=== PATIENT | male | born 1960 | race Caucasian/White ===

== ENCOUNTER → 2017-11-23 | Outpatient (CLI) | payer OTHER ==
--- NOTE | 2017-11-23 14:17 | CT ---
EXAMINATION TYPE: CT chest w con DATE OF EXAM: 11/23/2017 COMPARISON: None HISTORY: chest pain/congestion x 2.[address] DLP: 812 mGycm, Automated exposure control for dose reduction was used. CONTRAST: Performed injected with 100 mL of Isovue 300. TECHNIQUE: Axial images were obtained at 5 mm thick sections. Reconstructed images are reviewed on [employer] computer in the coronal plane. FINDINGS: Portion of the thyroid visualized is normal. There is a masslike density with spiculated margins in the superior left lung measuring approximately 5.4 x 3.7 cm in size. No additional lung masses or infiltrates are evident. There is a prominent 1.0 cm lymph node in the l eft axillary region. Multiple small superior mediastinal lymph nodes are present. There are enlarged left suprahilar lymph nodes with some subtle hypodensity centrally measuring 1.4-1.7 cm in diameter. The left infrahilar lymph node is in transverse dimension of 1.4 cm. There is a very large medial aor topulmonic window lymph node measuring 2.9 cm. Additional paratracheal lymphadenopathy is present. Th ere is a 1.3 cm subcarinal lymph node present. The ascending aorta diameter at the level of the main pulmonary artery is 3.2 cm. The main pulmonary artery diameter at the bifurcation is 2.[address] sections are obtained through the upper abdomen. Abdomen is essentially unremarkable. IMPRESSIONS: 1. Left suprahilar mass with multiple enlarged mediastinal lymph nodes. Primary lung neoplasm with me diastinal metastatic disease likely present. Differential could include metastatic disease to the kelly g and mediastinum. Confirmatory workup is recommended.
== END | disposition home or self-care (01) ==
LOC: RADCTMAIN 13:30
PROVIDERS: ATTEND Internal Medicine
DX: R91.8 Other nonspecific abnormal finding of lung field (principal); R59.0 Localized enlarged lymph nodes
CPT/HCPCS: 71260; Q9967

== ENCOUNTER → 2017-12-01 | Outpatient (CLI) | payer OTHER ==
--- NOTE | 2017-12-02 09:52 | PE ---
EXAMINATION TYPE: PET CT fusion skull to thigh DATE OF EXAM: 12/01/2017 COMPARISON: CT chest 11/23/2017 Prior PET/CT: None HISTORY: Solitary pulmonary nodule TECHNIQUE: Following the intravenous administration of 10.234 mCi of F-18 FDG, whole body images are performed from the skull base to the midthigh. Images are reviewed on the computer in the coronal, axial, and sagittal planes. Reconstructed rotating images are created on independent workstation and reviewed on the computer. A localization and attenuation correction CT is performed in conjunction with the PET scan. DLP: 475.12 mGycm SCAN: Initial Scan Blood glucose: 111 mg/dL Average Mediastinum SUV: 1.44 Average Liver SUV: 2.64 FINDINGS: NECK: No abnormal uptake THORAX: There is a mass in the left apex. This has an SUV value of 16.69. Image 80. There is a large aortopulmonic window lymph node with an SUV value of 18 compatible with metastatic disease. Smaller l eft suprahilar lymphadenopathy with increased uptake is present with an SUV value of 6.1, image 86. A left hilar lymph node has an SUV value of 15.89, image 93. ABDOMEN: No abnormal uptake PELVIS: No abnormal uptake OSSEOUS STRUCTURES: No abnormal uptake LOCALIZATION CT: Additional shotty lymphadenopathy is evident on the localization CT. The ascending t horacic aorta at the level of main pulmonary artery is 3.7 cm. The main pulmonary artery the bifurcat ion is 2.5 cm. There is somewhat prominent subcarinal adenopathy measuring 1.1 cm. However, uptake is intermediate and approximately 1.7 SUV maximum. COMPARISON: Findings are stable from the comparison CT examination. IMPRESSION: 1. Marked increased uptake within the left apical lung mass with increased uptake within mediastinal lymph nodes which are enlarged by CT criteria compatible with primary or metastatic neoplasm. 2. Additional lymphadenopathy within the mediastinum, some of which is enlarged such as at the subcar inal region, does not have elevated SUV values at this time. 3. Additional distant metastatic disease is not identified.
== END ==
LOC: RADPETMAIN 16:14
PROVIDERS: ATTEND Internal Medicine Critical Care Medicine
DX: R59.0 Localized enlarged lymph nodes (principal)
CPT/HCPCS: 78815; A9552

== ENCOUNTER 2017-12-12 10:16 | Day surgery (SDC) | payer OTHER ==
[2017-12-12] MEDS ORDERED: LIDOCAINE 1% 20 ML VIAL (10MG/ML) FOR IV START INTRADERMA PRN (11:05)
[2017-12-12] MEDS ORDERED: LACTATED RINGERS 1,000 ML IV SCH (11:05)
[2017-12-12] MEDS ORDERED: LIDOCAINE 2% (PF) 20 MG/ML 2 ML AMP INHALATION ONE (11:13)
[2017-12-12 11:17] VITALS: RESP 16; TEMP 98.5
[2017-12-12 11:32] VITALS: BMI 34.0
[2017-12-12] MEDS ORDERED: fentaNYL (PF) 50 MCG/ML 2 ML AMP ONE (12:13)
[2017-12-12] MEDS ORDERED: MIDAZOLAM 2 MG/2 ML VIAL ONE (12:13)
[2017-12-12] MEDS ORDERED: PROPOFOL 10 MG/ML 20 ML VIAL IV ONE (12:13)
[2017-12-12 13:12] VITALS: BP 114/74; PULSE 74
--- NOTE | 2017-12-12 13:34 | FL ---
EXAMINATION TYPE: FL bronchoscopy DATE OF EXAM: 12/12/2017 CLINICAL HISTORY: Abnormal CT and PET/CT. Lung masses and adenopathy. TECHNIQUE: Fluoroscopy. COMPARISON: PET/CT December 01, 2017 FINDINGS: Fluoroscopic guidance was provided during bronchoscopy with left upper lobe sampling proce dure performed by Dr. Mckeon. A total of 22 seconds of fluoroscopic time was utilized during the proc edure and one spot image is acquired. Single image acquired was not saved to PACS station documents f older. IMPRESSION: As Above.
--- NOTE | 2017-12-12 13:38 | XR ---
EXAMINATION TYPE: XR chest 1V portable DATE OF EXAM: 12/12/2017 COMPARISON: Chest CT November 23, 2017 and PET/CT December 01, 2017 HISTORY: Known lung masses. Bronchoscopy today. TECHNIQUE: Single AP portable frontal upright view of the chest is obtained after bronchoscopy. FINDINGS: There is redemonstration of left upper lobe mass. No sizable pneumothorax is seen after b ronchoscopy with sampling. Right lung is clear. The cardiac silhouette size is within normal limits. The osseous structures are intact. IMPRESSION: No sizable pneumothorax after bronchoscopy.
--- NOTE | 2017-12-12 14:08 | PCN ---
PROCEDURE NOTE PROCEDURE: Bronchoscopy, airway examination, therapeutic lavage, BAL, brushes left upper lobe, transbronchial biopsies left upper lobe. PREOPERATIVE DIAGNOSIS: Left upper lobe mass, rule out lung cancer. POSTOPERATIVE DIAGNOSIS: Left upper lobe mass, rule out lung cancer. OPERATORS: Dr. Mckeon and Dr. Michele Walden, [employer] provided unconscious and general anesthesia The patient's procedure took place in room #1. There was informed consent. There was universal timeout. After the patient was adequately sedated and being fully monitored, the bronchoscope was inserted through the right nostril. It passed through the right nasopharynx into the oropharynx. The hypopharynx was identified and topicalized. The hypopharyngeal structures were evaluated. Anterior commissure was normal. Epiglottis was normal. Vallecula, piriform sinuses, right and left were normal. The right vocal cord appeared normal. The left vocal cord did not move. 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 The rest of the hypopharyngeal structures other than the left vocal cord was normal. Next, after topicalization, the bronchoscope was pushed through the glottic opening into the trachea. Trachea appeared normal. Trachea dena was sharp. Right and left mainstem were topicalized. After topicalization, there was a thorough evaluation of both lungs including the right upper lobe and its 3 segments, the right middle lobe and its 2 segments, right lower lobe and its 5 segments, the left upper lobe proper and its 2 segments, the lingula and its 2 segments and the left lower lobe and its 4 segments. The airways themselves looked normal. There was no dominant mass. Next, under fluoroscopic guidance, the bronchoscope was positioned into the left upper lobe. With the fluoroscopic evaluation, we were about to brush the area of concern. Next, multiple transbronchial biopsies were done in the same area. Finally, after that, BAL took place in the same area. The patient tolerated the procedure well. There was minimal bleeding. We ensured there was hemostasis before the bronchoscope was withdrawn. The pieces obtained were a good size. The patient will need a chest x- ray to rule out pneumothorax. There was no obvious pneumothorax on the fluoroscopic evaluation after the procedure was completed. The patient will be recovered and discharged accordingly. There was no immediate complication. MMODL / IJN: [id number] /
[2017-12-12 17:44] LABS: Appearance,BF Bloody; Color,BF Red; Nucleated Cells, Body Fluid 500 /uL
[2017-12-12 17:45] LABS: RBC, Body Fluid 391500 /uL
[2017-12-12 17:47] LABS: Mononuclear WBC,Body Fluid 18 %; Polynuclear WBC,Body Fluid 78 %; Total Cells Counted,Body Fluid 100
== END 2017-12-12 13:49 | disposition home or self-care (01) ==
LOC: ORWHC2ENDO 10:16
PROVIDERS: ATTEND Internal Medicine Critical Care Medicine
DX: R84.7 Abnormal histological findings in specimens from respiratory organs and thorax (principal); J38.01 Paralysis of vocal cords and larynx, unilateral; K21.9 Gastro-esophageal reflux disease without esophagitis; Z79.1 Long term (current) use of non-steroidal anti-inflammatories (NSAID); F17.200 Nicotine dependence, unspecified, uncomplicated; Z79.899 Other long term (current) drug therapy
CPT/HCPCS: 94640; 88104; 88108; 88305; 89050; 87252; 87070; 87205; 87116; 87102; 87206; 71045; 31628; 31623; 31624; J2250; J3010; J2704; J2001; 87496; 87498; 87502; 87529; 87634; 87798; 88341; 88342

== ENCOUNTER → 2017-12-21 | Outpatient (CLI) | payer OTHER ==
--- NOTE | 2017-12-21 15:29 | MR ---
EXAMINATION TYPE: MR brain wo/w con DATE OF EXAM: 12/21/2017 3:17 PM COMPARISON: NONE HISTORY: C34.90 Lung Cancer / R51 Headaches FINDINGS: The ventricles, basal cisterns and sulci overlying the cerebral convexities are mildly enlarged. There is evidence of mild periventricular white matter ischemic demyelination. Remote deep white matter insults are also noted. No acute edema is seen on diffusion weighted imaging. There is no evidence for midline shift or mass effect. Acute intracranial hemorrhage or extra-axial collection is not evident. The paranasal sinuses and mastoid air cells are well-aerated. IMPRESSION: Age-related atrophic and chronic small vessel ischemic change. No acute intracranial process at this time.
== END | disposition home or self-care (01) ==
LOC: RADMRIMAIN 14:12
PROVIDERS: ATTEND Internal Medicine Hematology & Oncology
DX: G31.1 Senile degeneration of brain, not elsewhere classified (principal); I67.82 Cerebral ischemia; C34.90 Malignant neoplasm of unspecified part of unspecified bronchus or lung
CPT/HCPCS: 70553; A9581

== ENCOUNTER → 2018-01-11 | Outpatient (CLI) | payer OTHER ==
[2018-01-11 08:36] LABS: Blood Urea Nitrogen 21 mg/dL (9-20)
--- NOTE | 2018-01-11 12:25 | CT ---
EXAMINATION TYPE: CT angio chest DATE OF EXAM: 01/11/2018 COMPARISON: CT chest November 23, 2017. PET CT December 01, 2017 HISTORY: Right-sided Chest pain. History of lung cancer last chemotherapy January 07. CT DLP: 1223.4 mGycm. Automated Exposure Control for Dose Reduction was Utilized. CONTRAST: CTA scan of the thorax is performed with IV Contrast, patient injected with 100 mL of Isovue 370, pul monary embolism protocol. MIP Images are created on CT scanner and reviewed. FINDINGS: LUNGS: Hypermetabolic neoplasm in the left upper lobe measures roughly 4.2 x 2.8 cm on axial image 33 diminished in size from older studies. Accurate measurement is difficult due to elongated appearance . Some new cavitation inferiorly is present. No new nodules or masses are clearly identified. No pleural effusion or pneumothorax is seen bilatera lly. MEDIASTINUM: There is satisfactory enhancement of the pulmonary artery and its branches, there is no CT evidence for pulmonary embolism. No significant pericardial effusion is seen. There is stable mil d cardiomegaly. There is now confluent mass or adenopathy left hilar region versus better visualize distinct nodes on prior exam extending into the paratracheal space with mass effect on the left pulmonary arteries chrissy r hilum that are mildly narrowed seen from images 47 through 66, this is more prominent from prior ex am. Confluent area measures roughly 6.7 x 3.6 cm on axial image 51. OTHER: There is slight scoliotic curvature in the spine. There is mild multilevel spurring in the low er thoracic spine. IMPRESSION: 1. No CT evidence for acute pulmonary embolism. 2. Interval improvement in left upper lobe mass or neoplasm. Worsening more confluent appearance of l eft hilar/mediastinal adenopathy involving AP window and left paratracheal space as well as tracheobr onchial window.
== END | disposition home or self-care (01) ==
LOC: RADCTMAIN 07:45
PROVIDERS: ATTEND Internal Medicine Hematology & Oncology
DX: R59.0 Localized enlarged lymph nodes (principal); C34.12 Malignant neoplasm of upper lobe, left bronchus or lung
CPT/HCPCS: 82565; 84520; 71275; 36415; Q9967

== ENCOUNTER → 2018-02-26 | Outpatient (CLI) | payer OTHER ==
[2018-02-26 10:00] LABS: Anisocytosis Slight; HCT 32.2 % (39.0-53.0); MCH 31.9 pg (25.0-35.0); MCHC 34.3 g/dL (31.0-37.0); MCV 92.9 fL (80.0-100.0); Macrocytosis Slight; Mean Platelet Volume 6.6; Platelet Count 260 k/uL (150-450); RBC 3.47 m/uL (4.30-5.90); RDW 18.7 % (11.5-15.5); WBC 3.1 k/uL (3.8-10.6)
[2018-02-26 11:32] LABS: Band Neutrophils % 4 %; Eosinophils # (M) 0.09 k/uL (0-0.7); Lymphocytes # (M) 0.37 k/uL (1.0-4.8); Metamyelocytes # (M) 0.03 k/uL (0); Metamyelocytes % 1 %; Monocytes # (M) 0.56 k/uL (0-1.0); Myelocytes # (M) 0.03 k/uL (0); Myelocytes % 1 %; Neutrophils % (M) 62 %; Nucleated Red Blood Cells 0 /100 WBC (0-0); Promyelocytes # (M) 0.03 k/uL (0); Promyelocytes % 1 %; Total Cells Counted 200
[2018-02-26 11:35] LABS: Polychromasia Present
== END | disposition home or self-care (01) ==
LOC: LABWHC1 09:19
PROVIDERS: ATTEND Internal Medicine Critical Care Medicine
DX: C34.90 Malignant neoplasm of unspecified part of unspecified bronchus or lung (principal); R91.8 Other nonspecific abnormal finding of lung field; Z79.899 Other long term (current) drug therapy
CPT/HCPCS: 36415; 85025

== ENCOUNTER → 2018-03-23 | Outpatient (CLI) | payer OTHER ==
--- NOTE | 2018-03-23 10:24 | PE ---
EXAMINATION TYPE: PET CT fusion skull to thigh DATE OF EXAM: 03/23/2018 COMPARISON: Prior PET/CT December 01, 2017. Most recent CTA chest January 11, 2018. HISTORY: Lung cancer progress study after treatment completed chemotherapy February 18 and completed r adiation treatment on February 21 TECHNIQUE: Following the intravenous administration of 13.637 mCi of F-18 FDG, whole body images are performed from the skull base to the midthigh. Images are reviewed on the computer in the coronal, axial, and sagittal planes. Reconstructed rotating images are created on independent workstation and reviewed on the computer. A noncontrast CT is performed in conjunction with the PET scan. SCAN: Subsequent Scan FINDINGS: SKULL BASE AND NECK: No new areas of suspicious hypermetabolic uptake are present. CHEST, MEDIASTINUM, AND HILAR REGION: Marked interval improvement in hypermetabolic left upper lung m ass with now masslike consolidation extending anteriorly and medially to abut the mediastinum, this a alisia measures 4.1 x 1.3 cm axial image 66 likely reflecting combination of treated neoplasm and adjace nt atelectasis, no abnormal residual hypermetabolic uptake is identified at this level on current dora dy. There is interval improvement in AP window lymph node now measuring 2.4 x 1.5 cm axial image 76 versu s 3.5 x 2.5 cm prior study image 88, it is currently ametabolic. Left-sided Superhilar lymph nodes no w measure subcentimeter in size and are ametabolic on current study. No new areas of abnormal hypermetabolic uptake are present. ABDOMEN AND PELVIS: No new suspicious hypermetabolic uptake is seen. Normal excretion is noted. OSSEOUS STRUCTURES: No new suspicious hypermetabolic uptake is seen. OTHER CT: Mild focal coronary artery calcification axial image 84 is noted marker for coronary artery disease. Ascending aorta measures 3.7 cm diameter axial image 80 similar to prior. Liver is low dense relative to spleen consistent with diffuse fatty infiltration. No adrenal masses a re noted. Normal-appearing appendix from cecum is incidentally seen. IMPRESSION: Overall positive treatment response as detailed above. EORTC response criteria: Complete Metabolic Response. MaxSUV < 2.5 or equivalent to background Primary tumor response WHO category:[place] - At least 30% decrease in longest recordable dimension of ari or.
== END | disposition home or self-care (01) ==
LOC: RADPETMAIN 07:25
PROVIDERS: ATTEND Internal Medicine Hematology & Oncology
DX: C34.12 Malignant neoplasm of upper lobe, left bronchus or lung (principal)
CPT/HCPCS: 78815; A9552

== ENCOUNTER → 2018-06-18 | Outpatient (CLI) | payer OTHER ==
--- NOTE | 2018-06-18 09:43 | CT ---
EXAMINATION TYPE: CT chest w con DATE OF EXAM: 06/18/2018 COMPARISON: PET CT 03/23/[address] chest 01/11/2018 HISTORY: 58-year-old male Lung CA follow up TECHNIQUE: Contiguous axial scanning of the chest after the administration of 80 mL of Isovue 300. C oronal/sagittal reconstructions performed. CT DLP: 550.5mGycm. Automatic exposure control utilized for a dose reduction. FINDINGS: Heart normal size with trace anterior pericardial thickening/fluid. Aorta normal caliber with conventional arch vessel branching anatomy. Subcarinal lymph node show slight increase in size now 1.5 cm versus 1.1 cm, previously. Couple promi nent right hilar lymph nodes measure up to 1.0 cm, not significantly changed from 01/11/2018. There is residual soft tissue thickening in the left tracheobronchial angle/AP window region and cont iguous left suprahilar and left upper lobe peribronchial opacity extending anteriorly in the apex. There is extensive new reticular change and patchy and confluent groundglass and infiltrate within th e left upper lobe but also medial aspect of the left lower lobe as well, likely corresponding to the radiation port. The previous focal left upper lobe/left suprahilar soft tissue thickening measures 4. 3 x 1.5 cm versus 4.6 x 1.5 cm, unchanged. Refer to axial image 13. A left infrahilar lymph node measures 8 mm and is unchanged. Mild emphysematous change on the right. Right lung and pleural space otherwise clear. Visualized upper abdomen shows no gross abnormality. Bones: Mild endplate spondylosis mid to lower thoracic spine. IMPRESSION: 1. Stable residual left tracheobronchial angle, left suprahilar, and left upper lobe soft tissue audie esponding to treated disease. The irregular left upper lobe opacity measures 4.3 x 1.5 cm (versus 4.6 x 1.5 cm on 03/23/2018), not significantly changed. 2. A few prominent lymph nodes, for example, right hilar (1.0 cm) and left infrahilar (8 mm) are unch anged. The subcarinal lymph node is a few millimeters larger (1.5 cm versus 1.1 cm, previously) and m ay be reactive. Continued follow-up recommended. 3. Extensive new patchy and confluent groundglass and infiltrates within the left upper lobe and medi al aspect of the left lower lobe likely corresponding to the radiation port and possible radiation pn eumonitis. Follow-up recommended.
== END | disposition home or self-care (01) ==
LOC: RADCTMAIN 07:37
PROVIDERS: ATTEND Internal Medicine Hematology & Oncology
DX: C34.12 Malignant neoplasm of upper lobe, left bronchus or lung (principal)
CPT/HCPCS: 82565; 84520; 71260; 36415; Q9967

== ENCOUNTER → 2018-09-10 | Outpatient (CLI) | payer OTHER ==
--- NOTE | 2018-09-10 10:16 | CT ---
EXAMINATION TYPE: CT chest w con DATE OF EXAM: 09/10/2018 COMPARISON: 06/18/2018, 03/23/2018, and 12/01/2017 HISTORY: 58-year-old male follow up to lung CA, observe for metastases. TECHNIQUE: Contiguous axial scanning of the chest after the administration of 80 mL of Isovue 300. C oronal/sagittal reconstructions performed. CT DLP: 485.8mGycm. Automatic exposure control utilized for a dose reduction. FINDINGS: Heart normal size without pericardial effusion. Aorta normal caliber with conventional branching anatomy. There is mild apical scarring and narrowing at the origin of the left subclavian artery. Prominent but nonenlarged 7 mm right paratracheal lymph node increased in size from prior, nonspecifi c. Stable AP window and left tracheobronchial angle soft tissue density and stable consolidation encasin g the left hilum with volume loss and patchy consolidation extending up into the left suprahilar freddy on. Contiguous patchy density extending up to the apex is increased, axial image 10. Additional peribronchial vascular volume loss and consolidation centrally along the left infrahilar r egion and patchy opacities within the posterior left midlung overall unchanged from 06/18/2018. Right hilar lymph node measures stable at 1.0 cm. Subcarinal lymph node measures 1.3 cm, unchanged. New patchy groundglass throughout the bilateral upper to mid lungs and background of mild emphysema. No pleural effusion. Visualized upper abdomen shows no gross. Bones: Mild endplate spondylosis mid to lower thoracic spine. No osseous destructive process. IMPRESSION: 1. Extensive posttreatment changes with volume loss and consolidation encasing the left hilum and ext ending up to the left apex and left infrahilar region. Findings suggest treated disease and posttreat ment change/fibrosis. 2. However, some contiguous focal opacity at the left apex is increased from 06/18/2018. This could re present progressive fibrosis. Close follow-up recommended to exclude the possibility of local recurre nce. 3. Soft tissue density in the AP window is unchanged and suggests treated disease. 4. A right paratracheal lymph node is slightly larger at 7 mm but still not abnormally enlarged. Find ings may be reactive/post inflammatory. Prominent 1 cm right hilar and 1.3 cm subcarinal lymph nodes are unchanged. 5. New patchy groundglass in the bilateral upper and mid lungs. Correlate for inflammatory processes such as hypersensitivity pneumonitis, drug reaction if the patient is receiving some type of systemic therapy, or interstitial pneumonitis such as NSIP.
== END | disposition home or self-care (01) ==
LOC: RADCTMAIN 08:18
PROVIDERS: ATTEND Internal Medicine Hematology & Oncology
DX: C34.12 Malignant neoplasm of upper lobe, left bronchus or lung (principal); R91.8 Other nonspecific abnormal finding of lung field
CPT/HCPCS: 82565; 84520; 71260; 36415; Q9967

== ENCOUNTER → 2018-12-24 | Outpatient (CLI) | payer OTHER ==
--- NOTE | 2018-12-24 09:36 | CT ---
EXAMINATION TYPE: CT chest w con DATE OF EXAM: 12/24/2018 COMPARISON: CT chest September 10, 2018 and older studies. PET/CT March 23, 2018 and older study December 01, 2017.. HISTORY: Malignant neoplasm of Lt upper Lobe CT DLP: 491.4 mGycm. Automated Exposure Control for Dose Reduction was Utilized. TECHNIQUE: CT scan of the thorax is performed following with IV Contrast, patient injected with 100 mL of Isovue 300. FINDINGS: LUNGS: Interval improvement in diffuse groundglass opacities bilaterally. Persistent left-sided volum e loss with irregular left upper lung scarring slightly more consolidative in appearance axial image 12, this is not significantly changed from most recent CT. Scarring extends to the left hilar region where there is superior hilar retraction. Background mild emphysematous change. No new nodules or mas ses. No pleural effusion or pneumothorax. MEDIASTINUM: There are no new greater than 1 cm hilar or mediastinal lymph nodes. Slightly enlarged AP window lymph node measuring 1.7 x 1.3 cm image 20 shows no significant increase in size from most recent CT, marked improvement from older studies. Stable prominent left hilar lymph node, for referen ce anterior tracheobronchial lymph node axial image 27 unchanged from most recent CT. Trace pericardi al effusion is slightly more prominent axial image 40 anteriorly. No cardiomegaly. OTHER: Mild multilevel spurring redemonstrated. IMPRESSION: No significant change from most recent CT. Extensive posttreatment changes left lung with left-sided volume loss. No new suspicious mass or adenopathy to suggest active neoplastic recurrence .
== END | disposition home or self-care (01) ==
LOC: RADCTMAIN 06:50
PROVIDERS: ATTEND Internal Medicine Hematology & Oncology
DX: Z03.89 Encounter for observation for other suspected diseases and conditions ruled out (principal); C34.12 Malignant neoplasm of upper lobe, left bronchus or lung; R91.8 Other nonspecific abnormal finding of lung field; Z92.21 Personal history of antineoplastic chemotherapy
CPT/HCPCS: 82565; 84520; 71260; 36415; Q9967

== ENCOUNTER → 2019-03-31 | Outpatient (CLI) | payer OTHER ==
--- NOTE | 2019-03-31 08:47 | CT ---
EXAMINATION TYPE: CT chest w con DATE OF EXAM: 03/31/2019 COMPARISON: 12/24/2018 HISTORY: Lung CA CT DLP: 565.7 mGycm. Automated Exposure Control for Dose Reduction was Utilized. TECHNIQUE: CT scan of the thorax is performed following with IV Contrast, patient injected with 100 mL of Isovue 300. FINDINGS: LUNGS: There is a similar appearance of the post therapy change in the left perihilar and suprahilar regions. Cylindrical bronchiectasis and fibrotic changes are seen. Again the most consolidative appea ring region is noted on image 11, unchanged in morphology and overall size in comparison to the prior of 12/24/2018. Left hemithorax volume loss is present. There is a 2 mm pulmonary nodule that is solid in appearance in the right upper lobe anterior lateral ly on image 21. This is unchanged from the prior. Retrospectively this is unchanged from the most rem ote exam of 11/23/2017 and likely benign. Again there is background mild emphysematous change. No new suspicious nodules or masses are seen. There is no pleural effusion or pneumothorax seen. The trach eobronchial tree is patent. MEDIASTINUM: There is stable appearance of the irregular aorticopulmonary window lymph node on image 21 and nonenlarged other mediastinal lymph nodes. Trace pericardial effusion. Heart is nonenlarged. OTHER: In the visualized portions of the liver the hepatic parenchyma is diffusely hypoattenuated in comparison to that of the spleen, most commonly seen in hepatic steatosis. This finding limits evalua tion for hepatic masses. No gross evidence of hepatic mass is seen. No intrahepatic biliary ductal di latation. Mild multilevel degenerative disc disease is seen of the thoracic spine with multiple punctate sclero tic lesions most of which appear closely approximated with the endplates, likely on the basis of dege nerative disc disease rather than osseous metastasis. IMPRESSION: 1. Unchanged posttreatment change of the left lung and stable irregular aorticopulmonary window mildl y enlarged lymph node. 2. Unchanged 2 mm contralateral right upper lobe pulmonary nodule dating back to 2018, likely benign. No new suspicious nodule.
== END | disposition home or self-care (01) ==
LOC: RADCTMAIN 06:07
PROVIDERS: ATTEND Internal Medicine Hematology & Oncology
DX: Q21.4 Aortopulmonary septal defect (principal); R91.1 Solitary pulmonary nodule; R59.9 Enlarged lymph nodes, unspecified; C34.12 Malignant neoplasm of upper lobe, left bronchus or lung
CPT/HCPCS: 82565; 84520; 71260; 36415; Q9967

== ENCOUNTER → 2019-07-03 | Outpatient (CLI) | payer BC ==
--- NOTE | 2019-07-03 09:25 | CT ---
EXAMINATION TYPE: CT chest w con DATE OF EXAM: 07/03/2019 COMPARISON: 03/31/2019, 12/24/2018, PET/CT 03/23/2018 HISTORY: Follow up lung cancer. CT DLP: 546.4 mGycm Automated exposure control for dose reduction was used. CONTRAST: CT scan of the chest is performed with IV Contrast, patient injected with 100 mL of Isovue 300. FINDINGS: LUNGS: There is a similar appearance of the post therapy change in the left perihilar and suprahilar regions. Cylindrical bronchiectasis and fibrotic changes are seen. Finding is unchanged in morphology and overall size in comparison to the prior exam. Left hemithorax volume loss is present. There is a 2 mm pulmonary nodule that is solid in appearance in the right lobe. This is unchanged fro m the prior. Retrospectively this is unchanged from the most remote exam of 11/23/2017 and likely angelo gn. Again changes of COPD noted. No new suspicious nodules or masses are seen. There is no pleural ef fusion or pneumothorax seen. The tracheobronchial tree is patent. MEDIASTINUM: There is stable appearance of the irregular aorticopulmonary window lymph and nonenlarg ed other mediastinal lymph nodes. Trace pericardial effusion. Heart is mildly prominent. OTHER: In the visualized portions of the liver the hepatic parenchyma is diffusely hypoattenuated in comparison to that of the spleen, most commonly seen in hepatic steatosis. This finding limits evalu ation for hepatic masses. No gross evidence of hepatic mass is seen. Stable nonspecific thickening of the left adrenal gland likely benign. No intrahepatic biliary ductal dilatation. Mild multilevel degenerative disc disease is seen of the t horacic spine with multiple punctate sclerotic lesions most of which appear closely approximated with the endplates, likely on the basis of degenerative disc disease rather than osseous metastasis. IMPRESSION: 1. Stable posttreatment change of the left lung masslike area of consolidation and left AP window mil dly enlarged lymph node. 2. Stable 2 mm right upper lobe pulmonary nodule unchanged from 2018 and therefore likely benign. 3. Stable numerous sclerotic lesions in the vertebral column predominantly confined to the endplates and therefore likely discogenic
== END | disposition home or self-care (01) ==
LOC: RADCTMAIN 07:10
PROVIDERS: ATTEND Internal Medicine Hematology & Oncology
DX: C34.12 Malignant neoplasm of upper lobe, left bronchus or lung (principal)
CPT/HCPCS: 71260; Q9967

== ENCOUNTER → 2020-01-07 | Outpatient (CLI) | payer BC ==
--- NOTE | 2020-01-07 10:27 | CT ---
EXAMINATION TYPE: CT chest w con DATE OF EXAM: 01/07/2020 COMPARISON: 07/03/2019 HISTORY: Follow up lung cancer. CT DLP: 540 mGycm Automated exposure control for dose reduction was used. CONTRAST: CT scan of the chest is performed with IV Contrast, patient injected with 100 mL of Isovue 300. FINDINGS: LUNGS: There is a similar appearance of the post therapy change in the left perihilar and suprahilar regions. Cylindrical bronchiectasis and fibrotic changes are seen. Finding is unchanged in morphology and overall size in comparison to the prior exam. Left hemithorax volume loss is present. MEDIASTINUM: There is stable appearance of the irregular aorticopulmonary window lymph and nonenlarge d other mediastinal lymph nodes. Trace pericardial effusion. Heart is mildly prominent OTHER: In the visualized portions of the liver the hepatic parenchyma is diffusely hypoattenuated in comparison to that of the spleen, most commonly seen in hepatic steatosis. This finding limits evalu ation for hepatic masses. No gross evidence of hepatic mass is seen. Stable nonspecific thickening of the left adrenal gland likely benign. Mild multilevel degenerative disc disease is seen of the thoracic spine with multiple punctate sclero tic lesions most of which appear closely approximated with the endplates, likely on the basis of dege nerative disc disease rather than osseous metastasis. IMPRESSION: 1. Stable posttreatment change with left lung masslike area consolidation left upper lobe stable from prior exam. 2. Stable 2 mm right upper lobe pulmonary nodule unchanged from 2018 and therefore likely benign. No new pulmonary nodules or adenopathy. 3. Stable numerous sclerotic lesions in the vertebral column predominantly confined to the endplates and therefore likely discogenic.
== END | disposition home or self-care (01) ==
LOC: RADCTMAIN 08:38
PROVIDERS: ATTEND Internal Medicine Hematology & Oncology
DX: R91.1 Solitary pulmonary nodule (principal); C34.12 Malignant neoplasm of upper lobe, left bronchus or lung; Z98.890 Other specified postprocedural states
CPT/HCPCS: 71260; Q9967

== ENCOUNTER → 2020-07-07 | Outpatient (CLI) | payer BC ==
--- NOTE | 2020-07-07 10:20 | CT ---
EXAMINATION TYPE: CT chest w con DATE OF EXAM: 07/07/2020 COMPARISON: Prior chest CT January 07, 2020 and older studies. Prior PET CTs 2018. HISTORY: Lung cancer CT DLP: 721 mGycm. Automated Exposure Control for Dose Reduction was Utilized. TECHNIQUE: CT scan of the thorax is performed following with IV Contrast, patient injected with 100 mL of Isovue 300. FINDINGS: LUNGS: Stable left upper lung volume loss with parenchymal masslike scarring causing left hilar super ior retraction. Finding extends from left hilar region to the apex. No significant interval change fr om most recent CTs. Additional mild linear scarring in the hilar region bilaterally. No new nodules o r masses. No pleural effusion or pneumothorax seen bilaterally. MEDIASTINUM: There is stable prominent but subcentimeter lymph node in the AP window just anterior to the descending thoracic aorta axial image 22 at site of prior adenopathy on original studies. No new greater than 1 cm recurrent left hilar adenopathy. No new greater than 1 cm thoracic lymph nodes. St able focal tiny pericardial effusion or thickening anterior inferior aspect axial image 40 redemonstr ated. No cardiomegaly. Small sized thyroid. OTHER: Visualized liver is hypodense consistent with diffuse fatty infiltration. Slight scoliotic cur vature. IMPRESSION: Overall stable findings from most recent CT. Posttreatment changes to the left lung redem onstrated. No new or enlarging mass or adenopathy to suggest active neoplastic recurrence.
== END | disposition home or self-care (01) ==
LOC: RADCTMAIN 08:44
PROVIDERS: ATTEND Internal Medicine Hematology & Oncology
DX: C34.12 Malignant neoplasm of upper lobe, left bronchus or lung (principal); Z98.890 Other specified postprocedural states
CPT/HCPCS: 71260; Q9967

== ENCOUNTER → 2021-01-05 | Outpatient (CLI) | payer BC ==
--- NOTE | 2021-01-05 18:47 | CT ---
EXAMINATION TYPE: CT chest w con DATE OF EXAM: 01/05/2021 COMPARISON: 07/07/2020 HISTORY: Lung cancer. CT DLP: 521.6 mGycm, Automated exposure control for dose reduction was used. CONTRAST: Performed injected with 100 mL of Isovue M300. TECHNIQUE: Axial images were obtained at 5 mm thick sections. Reconstructed images are reviewed on [employer] computer in the coronal plane. FINDINGS: Thyroid is not identified within the [id number] There is a stable 2.7 x 1.9 cm nodule at the posterior left apex. Some streak opacity extends inferio rly towards the left hilum. Some peribronchial thickening may be present. Findings appear stable from the comparison No enlarged mediastinal or hilar adenopathy is evident. Small stable left axillary lymph node is no kadeem. The ascending aorta diameter at the level of the main pulmonary artery is 3.5 cm. The main pulm onary artery diameter at the bifurcation is 2.[address] sections are obtained through the upper abdomen. Liver has moderate fatty infiltration. No discrete masses are evident. IMPRESSIONS: 1. Stable appearance of a left apical nodule with consolidation extending to the left hilum. 2. Moderate fatty infiltration of liver, stable
== END | disposition home or self-care (01) ==
LOC: RADCTMAIN 10:40
PROVIDERS: ATTEND Internal Medicine Hematology & Oncology
DX: C34.92 Malignant neoplasm of unspecified part of left bronchus or lung (principal); K76.0 Fatty (change of) liver, not elsewhere classified
CPT/HCPCS: 71260; Q9967

== ENCOUNTER → 2021-07-06 | Outpatient (CLI) | payer BC ==
--- NOTE | 2021-07-06 10:11 | CT ---
EXAMINATION TYPE: CT chest w con DATE OF EXAM: 07/06/2021 COMPARISON: 01/05/2021 HISTORY: Follow up to lung CA CT DLP: 568.4 mGycm Automated exposure control for dose reduction was used. TECHNIQUE: CT scan of the chest is performed with IV Contrast, patient injected with 100 mL of Isovue 300. MIP Images are created on CT scanner and reviewed. 3D reconstructed images are created on an independent workstation and reviewed. FINDINGS: LUNGS: There is a stable 2.7 x 1.9 cm nodule at the posterior left apex. Some streak opacity extends inferiorly towards the left hilum. Adjacent consolidative changes are also noted appears similar to p rior exam. Peribronchial wall thickening is seen and there is thickening of the mainstem bronchus on the left similar to the exam.. Findings appear stable from the comparison calcified nodule right lowe r lobe. . There is no pleural effusion or pneumothorax seen. The tracheobronchial tree is patent. MEDIASTINUM: There are no greater than 1 cm hilar or mediastinal lymph nodes. No pericardial effusi on is seen. The ascending aorta diameter at the level of the main pulmonary artery is 3.5 cm. The ma in pulmonary artery diameter at the bifurcation is 2.8 cm. There is a tiny pericardial effusion. Hear t size normal. Mild atherosclerotic change aorta. No aneurysm OTHER: Changes suggest hepatic steatosis correlate clinically. Hypertrophic and degenerative changes spine. IMPRESSION: 1. Stable left apical lung nodule unchanged in size relative to the prior exam with adjacent consolid ation similar to the prior. 2. Hepatic steatosis
== END | disposition home or self-care (01) ==
LOC: RADCTMAIN 09:29
PROVIDERS: ATTEND Internal Medicine Hematology & Oncology
DX: C34.12 Malignant neoplasm of upper lobe, left bronchus or lung (principal); K76.0 Fatty (change of) liver, not elsewhere classified
CPT/HCPCS: 71260; Q9967

== ENCOUNTER → 2022-01-13 | Outpatient (CLI) | payer BC ==
--- NOTE | 2022-01-13 08:59 | CT ---
EXAMINATION TYPE: CT chest w con DATE OF EXAM: 01/13/2022 COMPARISON: 07/07/2019 HISTORY: Lung cancer CT DLP: 702 mGycm Automated exposure control for dose reduction was used. CONTRAST: CT scan of the chest is performed with IV Contrast, patient injected with 70 mL of Isovue 300. FINDINGS: LUNGS: Persistent left apical nodule currently measuring 2.3 x 2.0 cm versus prior measurement of 2.7 x 1.9 cm. Persistent consolidation with air bronchogram extends to the left lung apex as well as the left suprahilar region. Persistent bronchial wall thickening also unchanged. No evidence for new mas s. The lungs are otherwise clear. MEDIASTINUM: There are no greater than 1 cm hilar or mediastinal lymph nodes. No pericardial effusi on is seen. Thoracic aorta is of normal caliber. The heart is not enlarged. UPPER ABDOMEN: Stable mild hepatic steatosis. OTHER: No additional significant abnormality is seen. IMPRESSION: 1. Left apical nodule appears slightly smaller in size. Stable post therapy changes including consoli dation extending from the left lung apex to the left suprahilar region with air bronchograms and bron chial wall thickening. No adenopathy or new nodules appreciated.
== END | disposition home or self-care (01) ==
LOC: RADCTMAIN 08:07
PROVIDERS: ATTEND Internal Medicine Hematology & Oncology
DX: C34.12 Malignant neoplasm of upper lobe, left bronchus or lung (principal); Z03.89 Encounter for observation for other suspected diseases and conditions ruled out
CPT/HCPCS: 71260; Q9967

== ENCOUNTER → 2022-07-19 | Outpatient (CLI) | payer BC ==
--- NOTE | 2022-07-19 10:09 | CT ---
EXAMINATION TYPE: CT chest w con DATE OF EXAM: 07/19/2022 COMPARISON: 01/13/2022, 01/05/2021 HISTORY: lung ca CT DLP: 756 mGycm Automated exposure control for dose reduction was used. TECHNIQUE: CT scan of the chest is performed with IV Contrast, patient injected with 70 mL of Isovue 300. MIP I mages are created on CT scanner and reviewed. 3D reconstructed images are created on an independent w orkstation and reviewed. FINDINGS: LUNGS: Persistent left apical nodule currently measuring 2.7 x 2.0 cm versus prior measurement of 2.7 2.0cm. Persistent consolidation with air bronchogram extends to the left lung apex as well as the le ft suprahilar region. Persistent bronchial wall thickening also unchanged. No evidence for new mass. The lungs are otherwise clear. MEDIASTINUM: There are no greater than 1 cm hilar or mediastinal lymph nodes. Trace of pericardial ef fusion is seen. Thoracic aorta is of normal caliber. The heart is not enlarged. OTHER: Hypertrophic and degenerative changes spine. Low attenuation of liver can be associated with hepatic steatosis. A tiny subcentimeter hypodensity extending off the left kidney exophytically measu res 4 Hounsfield units suggestive of simple cyst Bosniak classification 1. IMPRESSION: 1. Stable area of consolidation and nodularity in the left upper lobe unchanged from prior exam. Post therapeutic changes extending the left hilum are suspected also stable.
== END | disposition home or self-care (01) ==
LOC: RADCTMAIN 08:48
PROVIDERS: ATTEND Internal Medicine Hematology & Oncology
DX: Z03.89 Encounter for observation for other suspected diseases and conditions ruled out (principal); C34.12 Malignant neoplasm of upper lobe, left bronchus or lung
CPT/HCPCS: 71260; Q9967

== ENCOUNTER → 2023-01-31 | Outpatient (CLI) | payer BC ==
--- NOTE | 2023-01-31 10:57 | CT ---
EXAMINATION TYPE: CT chest w con CT DLP: 522.20 mGycm, Automated exposure control for dose reduction was used. DATE OF EXAM: 01/31/2023 9:18 AM COMPARISON: 07/19/2022 CLINICAL INDICATION:Male, 62 years old with history of C34.12 LUNG CA; [facility], Lung Cancer, left ; diagn osis 5 years ago TECHNIQUE: Multiple axial images were obtained through the chest. Sagittal and coronal reformats were created for review. Contrast used:100 ml mL of Isovue 300 with IV Contrast (None if empty) Oral contrast used: (None if empty) FINDINGS: LUNGS/ PLEURA: Stable morphology to the left lung consolidation changes extending to the periphery. N o new suspicious pulmonary nodules identified. No focal consolidation, pneumothorax or pleural effusi on. AIRWAY: Patent and unremarkable. HEART: Size within normal limits. MEDIASTINUM: No gross evidence of adenopathy. VASCULATURE: No aortic aneurysm. MUSCULOSKELETAL: No acute osseous abnormalities SOFT TISSUES/LYMPH NODES: Unremarkable. LOWER NECK: No significant findings. UPPER ABDOMEN: Low-attenuation to the liver parenchyma. IMPRESSION: Stable morphology to the left lung consolidation changes which extend towards the periphery. No lymph adenopathy or new suspicious pulmonary nodules.
== END | disposition home or self-care (01) ==
LOC: RADCTMAIN 08:56
PROVIDERS: ATTEND Internal Medicine Hematology & Oncology
DX: C34.12 Malignant neoplasm of upper lobe, left bronchus or lung (principal); R91.8 Other nonspecific abnormal finding of lung field
CPT/HCPCS: 71260; Q9967

== ENCOUNTER → 2024-02-04 | Outpatient (CLI) | payer BC ==
[2024-02-04 12:05] LABS: African American GFR (CKD) 83 (>60 ml/min/1.73 sqM); Blood Urea Nitrogen 20 mg/dL (9-20); Non-African American GFR(CKD) 71 (>60 ml/min/1.73 sqM)
--- NOTE | 2024-02-04 13:04 | CT ---
EXAMINATION TYPE: CT chest w con CT DLP: 533.7 mGycm, Automated exposure control for dose reduction was used. DATE OF EXAM: 02/04/2024 12:18 PM COMPARISON: Multiple CT chest with most recent 01/31/2023. CLINICAL INDICATION:Male, 63 years old with history of C34.12 lung ca; PH[facility], LUNG CA TECHNIQUE: Multiple axial images were obtained through the chest following the administration of 100 cc of Isovue 300. . Coronal and sagittal reformats reviewed. FINDINGS: LUNGS/ PLEURA: Stable morphology to the left lung consolidation changes extending to the periphery. A ssociated persistent bronchial wall thickening. No new suspicious pulmonary nodules identified. No fo marlyn consolidation, pneumothorax or pleural effusion. AIRWAY: Patent and unremarkable. HEART: Size within normal limits. Trace anterior pericardial effusion. MEDIASTINUM: No evidence of adenopathy. VASCULATURE: No aortic aneurysm. MUSCULOSKELETAL: No acute osseous abnormalities SOFT TISSUES/LYMPH NODES: Unremarkable. LOWER NECK: No significant findings. UPPER ABDOMEN: Low-attenuation to the liver parenchyma. Anterior left kidney cortical 1.5 cm cyst. IMPRESSION: Stable morphology to the left lung consolidation changes which extend towards the periphery. No lymph adenopathy or new suspicious pulmonary nodules. [facility], , 02/04/2024 1:02 PM
== END | disposition home or self-care (01) ==
LOC: RADCTMAIN 11:14
PROVIDERS: ATTEND Internal Medicine Hematology & Oncology
DX: C34.12 Malignant neoplasm of upper lobe, left bronchus or lung
CPT/HCPCS: 36415; 71260; 82565; 84520

== ENCOUNTER → 2024-08-21 | Outpatient (CLI) | payer BC ==
--- NOTE | 2024-08-21 12:40 | CA ---
Lexiscan Nuclear Stress Test Report Name: Arley Gutierrez Exam Date: 08/21/2024 09:34 Exam Location: [facility] Ht (in): 68 Wt (lb): 235 BSA: 2.19 Ordering Phys: Elgin Mosquera MD Referring Phys: Elgin Mosquera MD Technologist: SHALINI SMITH Age: 64 Gender: M : 1960 Procedure CPT: Indications: I65.23 carotid stenosis ICD-10 Codes: Patient History: DIFFICULTY IN BREATHING, DIABETIC, HYPERCHOLESTEROLEMIA, PRIOR SMOKER Medications: SYNTHROID,,,, ROSUVASTATIN,,,, EZETIMIBE,,,, LANTUS,,,, D3,,,, MULTIVITAMIN,,, Meds past 24 hrs: Pretest Chest Pain: STRESS TEST Lexiscan Protocol Exercise Duration (min:sec): 02:[address] Depressions (mm): Angina Score: Almanzar Score: Resting HR (bpm): 67 Peak HR (bpm): 97 Resting BP (mmHg): 137 / 79 Peak BP (mmHg): 141 / 81 MPHR: 155 Target HR: 132 % MPHR: 63 METS: 1.0 Total Dose: Peak Dose: Atropine: Double Product: 37871 BP Response: Stress Termination: INFUSION COMPLETE Stress Symptoms: NO SYMPTOMS Stress Summary: ECG ANALYSIS Resting ECG: Sinus rhythm. Normal conduction. No arrhythmias. Normal repolarization. Stress ECG: No ECG changes from baseline with Lexiscan infusion. Ventricular premature contraction. CONCLUSIONS No ECG evidence of ischemia with Lexiscan infusion. Nuclear test results to follow. Dr. Elli Hair MD (Electronically Signed) Final Date: 21 August 2024 12:40
--- NOTE | 2024-08-21 15:34 | NM ---
EXAMINATION TYPE: NM stress lexiscan cardiolite DATE OF EXAM: 08/21/2024 COMPARISON: NONE CLINICAL INDICATION: Male, 64 years old with history of Carotid stenosis, TECHNIQUE: After the intravenous administration of 9.5 mCi Tc 99m Sestamibi - Cardiolite resting SPE CT images acquired 53 minutes post injection. At peak stress 25.3 mCi Tc 99m Sestamibi - Stress images obtained 69 minutes post injection The patient was stressed with 0.4mg Lexiscan. FINDINGS: There is diminished radiotracer accumulation along the anterior lateral wall on the stress images. Th is appears smaller on the resting images. Wall motion is normal. Ejection fraction is calculated to be 49 %. Normal left than 50%. IMPRESSION: 1. There may be a small distal anterolateral wall infarct. This has a large reversible area of stress -induced ischemic change and stress along the anterior lateral wall extending from the base to the ca rdiac apex. 2. Mildly diminished ejection fraction of 49%. [facility], , 08/21/2024 3:32 PM
== END | disposition home or self-care (01) ==
LOC: RADNMMAIN 07:59
PROVIDERS: ATTEND Internal Medicine
DX: I65.23 Occlusion and stenosis of bilateral carotid arteries (principal); E78.00 Pure hypercholesterolemia, unspecified; I25.9 Chronic ischemic heart disease, unspecified; E11.9 Type 2 diabetes mellitus without complications; Z87.891 Personal history of nicotine dependence
CPT/HCPCS: 93017; 78452; A9500

== ENCOUNTER 2024-11-03 05:32 | Day surgery (SDC) | payer MEDICARE ==
[2024-10-30 09:16] VITALS: BMI 36.4
[2024-11-03] MEDS ORDERED: ALPRAZolam 0.5 MG TAB PO PRN (05:54)
[2024-11-03] MEDS ORDERED: NITROGLYCERIN SL TABS 0.4 MG TAB SUBLINGUAL PRN ×2 (05:54→08:41)
[2024-11-03] MEDS ORDERED: ALPRAZolam 0.25 MG TAB PO PRN (05:54)
[2024-11-03] MEDS: IV FLUID CONTINUATION 1,000 ML IV ONE (06:12)
[2024-11-03 06:31] LABS: Glucose,Whole Blood 94 mg/dL (70-110)
[2024-11-03] MEDS: SODIUM CHLORIDE 0.9% 1,000 ML in EMPTY BAG 1 BAG IV SCH ×2 (06:36→09:00)
[2024-11-03] MEDS: ATORVASTATIN 80 MG TAB PO ONE (06:37)
[2024-11-03] MEDS: ASPIRIN 325 MG TAB PO ONE (06:37)
[2024-11-03 06:38] LABS: Basophils # (A) 0.08 10*3/uL (0.00-0.10); Basophils % (A) 1.1 %; Eosinophils # (A) 0.30 10*3/uL (0.04-0.35); Eosinophils % (A) 4.0 %; HCT 40.1 % (39.6-50.0); HGB 14.1 g/dL (13.0-17.0); Lymphocytes # (A) 2.08 10*3/uL (0.90-5.00); Lymphocytes % (A) 28.1 %; MCH 30.9 pg (27.0-32.0); MCHC 35.2 g/dL (32.0-37.0); MCV 87.9 fL (80.0-97.0); Monocytes # (A) 0.86 10*3/uL (0.20-1.00); Monocytes % (A) 11.6 %; Neutrophils # (A) 4.05 10*3/uL (1.80-7.70); Neutrophils % (A) 54.7 %; Platelet Count 167 10*3/uL (140-440); RBC 4.56 10*6/uL (4.40-5.60); RDW 13.2 % (11.5-14.5); WBC 7.41 10*3/uL (4.50-10.00)
[2024-11-03 06:40] VITALS: RESP 16; TEMP 97.9
[2024-11-03 06:54] LABS: African American GFR (CKD) 80 (>60 ml/min/1.73 sqM); Anion Gap 8 mmol/L; Blood Urea Nitrogen 20 mg/dL (9-20); Calcium 9.1 mg/dL (8.4-10.2); Carbon Dioxide 26 mmol/L (22-30); Chloride 107 mmol/L (98-107); Glucose 99 mg/dL (74-99); Non-African American GFR(CKD) 69 (>60 ml/min/1.73 sqM); Potassium 3.9 mmol/L (3.5-5.1); Sodium 141 mmol/L (137-145)
[2024-11-03] MEDS: HEPARIN SODIUM,PORCINE 10,000 UNIT in SODIUM CHLORIDE 0.9% 1,000 ML IRRIGATION PRN (07:27)
[2024-11-03] MEDS: HEPARIN SODIUM,PORCINE (1 ML) 2,500 UNIT in SODIUM CHLORIDE 0.9% 250 ML IRRIGATION PRN (07:27)
[2024-11-03] MEDS: MIDAZOLAM 2 MG/2 ML VIAL IVP ONE ×2 (07:40→08:05)
[2024-11-03] MEDS: LIDOCAINE 1% INJ 10MG/ML (20 ML MDV) SQ ONE (07:48)
[2024-11-03] MEDS: VERAPAMIL SYRINGE (5 MG/10 ML) INTRAARTER ONE (07:51)
[2024-11-03] MEDS: HEPARIN SODIUM 1,000 UN/ML (10ML VL) IVP ONE ×3 (07:56→08:45)
[2024-11-03] MEDS: fentaNYL (PF) 50 MCG/1 ML VIAL IVP ONE (08:06)
[2024-11-03] MEDS: PRASUGREL 10 MG TAB PO ONE (08:13)
[2024-11-03] MEDS: IOPAMIDOL-370 100ML BTL INJ ONE ×2 (08:26→08:46)
[2024-11-03] MEDS: PHENYLEPHRINE-0.9% NACL SYG 1,000 MCG/10 ML SYRINGE IVP ONE (08:30)
[2024-11-03] MEDS: niCARdipine Syringe (1,000 mcg/10 mL) INTRACORON ONE (08:35)
[2024-11-03] MEDS ORDERED: RX INFO: IV CONTRAST WAS GIVEN 1 EACH MISC MISCELLANE PRN (08:41)
[2024-11-03] MEDS ORDERED: ATROPINE SULFATE 0.1 MG/ML 10ML SYRINGE IV PRN (08:41)
[2024-11-03] MEDS ORDERED: ZOLPIDEM 5 MG TAB PO PRN (08:41)
[2024-11-03] MEDS ORDERED: MAG HYDROX/AL HYDROX/SIMETH 30 ML CUP PO PRN (08:41)
--- NOTE | 2024-11-03 08:47 | P.PCN ---
Date of Procedure: 11/03/24 Operative Findings: CARDIAC CATHETERIZATION AND PERCUTANEOUS CORONARY INTERVENTION PERFORMING PHYSICIAN: Ambrosio Osullivan MD, [facility] PROCEDURE PERFORMED: 1. Selective right and left coronary angiogram and left heart catheterization 2. Successful stenting of mid LAD using 3.5 x 18 mm Xience SINDY with an excel lent angiographic results 3. Adjunctive use of IVUS and IFR 4. Ultrasound-guided access of the right radial artery INDICATION: Symptomatic 64-year-old gentleman with abnormal stress test COMPLICATION: None APPROACH: Right radial artery LEVEL OF SEDATION: Moderate with the sedation time off 50 minutes PROCEDURE DESCRIPTION: After obtaining informed consent the patient was brought to the cardiac Debt Counselor. The right radial artery was cannulated using micropuncture technique under ultrasound guidance a micropuncture wire passed easily then I placed a 6 Latvian 11 cm sheath at the right radial artery and give the patient 2 mg of verapamil intra-arterial and 5000 units of heparin intravenous with continuous ACT monitoring. Selective right and left coronary angiogram and left heart katia terization performed using JR4 and JL 3.5 catheters. After that I decided to do an IFR of the LAD. After zeroing the Dobler wire and equalized in between the Dobler wire and guiding catheter the left main was engaged and subsequently it was wired with IFR of 0.86. IVUS was performed and showed a diameter between 3.5 to 4 mm. Predilatation was performed using 3.5 mm balloon before I deployed 3.5 mm x 18 mm stent which was postdilated using initially 4 mm NC balloon and subsequently 4.5 mm NC balloon. Final angiogram showed good angiographic results and final IVUS showed good results as well. The procedure was completed with no complication SELECTIVE CORONARY ANGIOGRAM: The right coronary artery: Medium caliber vessel nondominant vessel and appears to be occluded in the midportion Left main: Has mild disease all The left circumflex: Large caliber vessel and a dominant vessel with severe disease involving OM1 and OM 2 The left anterior descending artery: Large caliber vessel with intermediate to severe disease involving the midportion documented to be flow-limiting by Doppler wire. The proximal and distal LAD appeared to have mild disease all HEMODYNAMICS: The LVEDP was about 4 to 6 mmHg with no gradient was identified across aortic valve CONCLUSION: 1. Severe disease involving the mid LAD. The lesion was focal. I did perform successful PCI of the LAD as described above 2. Severe disease involving OM1 and OM 2 3. Low left-sided filling pressure POSTPROCEDURE MANAGEMENT: 1. Dual antiplatelet therapy using aspirin and Effient for 6 month 2. Consider PCI of OM1 and OM 2 if the patient remains symptomatic
[2024-11-03] MEDS ORDERED: NON FORMULARY DRUG (Aspirin [Adult Low Dose Aspirin Ec] 81 MG Tablet) PO SCH (09:00)
[2024-11-03] MEDS ORDERED: LEVOTHYROXINE 137 MCG TAB PO SCH (09:00)
[2024-11-03 15:13] VITALS: BP 146/85; PULSE 63
[2024-11-03] MEDS ORDERED: NON FORMULARY DRUG (Biotin [Biotin Disolve] 5,000 MCG Tablet) PO SCH (21:00)
[2024-11-03] MEDS ORDERED: INSULIN GLARGINE (LANTUS) 100 UNIT/ML SYR SQ SCH (21:00)
[2024-11-03] MEDS ORDERED: EZETIMIBE 10 MG TAB PO SCH (21:00)
[2024-11-03] MEDS ORDERED: CHOLECALCIFEROL PO SCH (21:00)
[2024-11-03] MEDS ORDERED: NON FORMULARY DRUG (Rosuvastatin 20 MG Tablet) PO SCH (21:00)
[2024-11-04] MEDS ORDERED: PRASUGREL 10 MG TAB PO SCH (09:00)
== END 2024-11-03 15:01 | disposition home or self-care (01) ==
LOC: CATHCVL 05:32
PROVIDERS: ATTEND Internal Medicine Interventional Cardiology
DX: I25.10 Atherosclerotic heart disease of native coronary artery without angina pectoris (principal); E11.9 Type 2 diabetes mellitus without complications; E78.2 Mixed hyperlipidemia; Z85.118 Personal history of other malignant neoplasm of bronchus and lung; Z87.891 Personal history of nicotine dependence; Z79.84 Long term (current) use of oral hypoglycemic drugs; Z79.899 Other long term (current) drug therapy
CPT/HCPCS: 92978; 93458; 93799; 80048; 85025; 99152; 99153; C9600; C1769 ×2; C1894; C1753; C1874; C1725 ×3; C1887; J2250; J1644 ×3; J2003; Q9967; J3010; J2371